=== PATIENT | male | born 1990 | race Two or more races ===

== ENCOUNTER 2021-03-14 03:20 | Emergency (ER) | payer BC, OTHER ==
[~2021-03-14] VITALS: Ht 182.9 cm; Wt 77.1 kg
[2021-03-14] MEDS ORDERED: EPINEPHrine HCL 1 MG/1 ML AMP ONE (03:25)
[2021-03-14] MEDS ORDERED: methylPREDNISolone SOD SUCC 125 MG/2 ML VL ONE (03:26)
[2021-03-14] MEDS ORDERED: EPINEPHrine HCL 1 MG/1 ML AMP IM ONE ×2 (03:30→05:15)
[2021-03-14] MEDS ORDERED: methylPREDNISolone SOD SUCC 125 MG/2 ML VL IM ONE ×2 (03:30→06:00)
[2021-03-14 06:01] VITALS: BP 131/75
== END 2021-03-14 06:15 | disposition home or self-care (01) ==
LOC: ER 03:20
DX: T78.3XXA Angioneurotic edema, initial encounter (principal); Z79.1 Long term (current) use of non-steroidal anti-inflammatories (NSAID); Z88.6 Allergy status to analgesic agent; Y92.89 Other specified places as the place of occurrence of the external cause
CPT/HCPCS: 96372; 99284; J0171; J2930